=== PATIENT | female | born 1975 | race Caucasian/White ===

== ENCOUNTER → 2017-09-24 | Outpatient (REF) | payer BC, OTHER ==
[2017-09-24 18:59] LABS: ANION GAP 9 MEQ/L (8-16); BLOOD UREA NITROGEN 15 MG/DL (7-18); CALCIUM LEVEL 10.3 MG/DL (8.5-10.1); CARBON DIOXIDE LEVEL 27 MEQ/L (21-32); CHLORIDE LEVEL 104 MEQ/L (98-107); CREATININE FOR GFR 1.23 MG/DL (0.55-1.02); FREE THYROXINE INDEX 2.8 % (1.3-4.8); GLOMERULAR FILTRATION RATE 51.5 (>58); GLUCOSE, FASTING 124 MG/DL (70-105); POTASSIUM SERUM 3.5 MEQ/L (3.5-5.1); SODIUM LEVEL 140 MEQ/L (136-145); T UPTAKE 30 % (30-39); THYROXINE (T4) 9.3 UG/DL (4.5-12.0)
[2017-09-24 19:13] LABS: LITHIUM LEVEL 0.53 MEQ/L (0.60-1.20)
== END ==
LOC: M LABDRAW1 15:24
DX: Z79.899 Other long term (current) drug therapy (principal)

== ENCOUNTER → 2018-04-09 | Outpatient (REF) | payer OTHER ==
[2018-04-09 14:18] LABS: ANION GAP 9 MEQ/L (8-16); BLOOD UREA NITROGEN 12 MG/DL (7-18); CALCIUM LEVEL 9.8 MG/DL (8.5-10.1); CARBON DIOXIDE LEVEL 24 MEQ/L (21-32); CHLORIDE LEVEL 107 MEQ/L (98-107); CREATININE FOR GFR 1.27 MG/DL (0.55-1.30); GLOMERULAR FILTRATION RATE 49.6 (>58); GLUCOSE, FASTING 132 MG/DL (70-100); POTASSIUM SERUM 4.1 MEQ/L (3.5-5.1); SODIUM LEVEL 140 MEQ/L (136-145)
[2018-04-09 14:24] LABS: LITHIUM LEVEL 1.45 MEQ/L (0.60-1.20)
== END ==
LOC: M LABDRAW1 13:27
DX: Z51.81 Encounter for therapeutic drug level monitoring (principal); Z79.899 Other long term (current) drug therapy

== ENCOUNTER → 2018-05-24 | Outpatient (REF) | payer SELFPAY ==
[2018-05-24 13:31] LABS: LITHIUM LEVEL 2.43 MEQ/L (0.60-1.20)
== END ==
LOC: M LAB LCGH 10:40
DX: Z51.81 Encounter for therapeutic drug level monitoring (principal); Z79.899 Other long term (current) drug therapy

== ENCOUNTER → 2018-10-02 | Outpatient (CLI) | payer BC ==
--- NOTE | 2018-10-02 20:05 | REP ---
Clinical: Smith lobular emphysema . Comparison: None . Technique: PA and lateral. Findings: The mediastinum and cardiac silhouette are normal. The lung flower demonstrate oligemia primarily involving the right upper lung zone which may reflect underlying bullous changes related to emphysema. Suspected old healed right rib fractures noted. No acute consolidation, effusion, or pneumothorax. The skeletal structures are intact and normal. Impression: 1. Chronic-appearing changes primarily involving the right hemithorax as noted above. No prior examination available for comparison. Electronically Signed by Isaaih Moscoso MD 10/02/2018 07:57 P
== END ==
LOC: M SMT 13:57
PROVIDERS: ATTEND Internal Medicine Pulmonary Disease
DX: R91.8 Other nonspecific abnormal finding of lung field (principal); J43.1 Panlobular emphysema

== ENCOUNTER → 2018-11-06 | Outpatient (CLI) | payer BC ==
--- NOTE | 2018-11-06 16:22 | PFTRPT ---
Height: 59.00 Inches Weight: 122.00 Lbs BSA: 1.49 Diagnosis: J43.1 DATE OF PROCEDURE: 11/06/2018 ORDERED BY: Dr. Gio Funk Spirometry: Study of excellent technical quality pre and post bronchodilators. Forced vital capacity reduced. FEV1 is borderline in proportion. Obstructive index is, therefore, borderline as well. Flow Volume Loop: Expiratory limb of the flow volume loop does suggest at least some degree of flow rate limitation. No significant bronchodilator response is identified. Lung Volumes: Total lung capacity normal. Residual volume suggests a degree of air trapping. Diffusing Capacity: Diffusing capacity, although reduced, is appropriate for alveolar volume. Hemoglobin: Hemoglobin is acceptable at 13.3. Airway Mechanics: Airway resistance and conductance are normal. IMPRESSION: Suspect underlying air trapping with mild diffusing capacity impairment appropriate for alveolar volume. Please correlate clinically. MTDD
== END ==
LOC: M CARPUL 11:59
PROVIDERS: ATTEND Internal Medicine Pulmonary Disease
DX: J43.1 Panlobular emphysema (principal)

== ENCOUNTER → 2024-06-05 | Outpatient (REF) | payer BC ==
[~2024-06-05] MED LIST: BENA25CA4 PO; BREO1INH3 INH; INCR1INH INH; LURA20TA PO; METF500T13 PO; ROSU10TA61 PO; TRAM50TA2 PO; UNIS25TA3 PO
[2024-06-05 18:15] LABS: COMPLEMENT C3 199.7 MG/DL (90.0-170.0); COMPLEMENT C4 60.4 MG/DL (12-36)
== END ==
LOC: M LAB REF 17:04
PROVIDERS: ATTEND Internal Medicine Nephrology
DX: N17.9 Acute kidney failure, unspecified (principal)

== ENCOUNTER → 2024-06-12 | Outpatient (CLI) | payer BC ==
[~2024-06-12] MED LIST changes: +LIDOCAINE 1% MDV 20ML VIAL As Ordered ONE; +MIDAZOLAM INJ 2MG/2ML VIAL As Ordered ONE; +NS 1,000 ML IV SCH; +PERCOCET 5MG/325MG TAB PO PRN; +fentaNYL 100 MCG/2 ML INJECTION As Ordered ONE
[2024-06-12 10:10] VITALS: TEMP 97.7
[2024-06-12 12:20] VITALS: BP 138/69; O2SAT 100
== END ==
LOC: M IRPRO 09:52
PROVIDERS: ATTEND Internal Medicine Nephrology
DX: N17.9 Acute kidney failure, unspecified (principal)
CPT/HCPCS: 50200; 76942; 88300; 99152; 99153; J2250; J3010